=== PATIENT | female | born 1955 | race Caucasian/White ===

== ENCOUNTER → 2016-08-05 | Outpatient (CLI) | payer OTHER | LOC: FIMAGING 10:05 | DX: Z12.31 Encounter for screening mammogram for malignant neoplasm of breast (principal); Z80.3 Family history of malignant neoplasm of breast | CPT/HCPCS: G0202 ==

== ENCOUNTER → 2017-03-22 | Outpatient (CLI) | payer OTHER | LOC: FIMAGING 13:48 → EDSTATUS 13:49 | PROVIDERS: ATTEND Registered Nurse | DX: M19.041 Primary osteoarthritis, right hand (principal); M79.645 Pain in left finger(s) ==

== ENCOUNTER → 2017-08-14 | Outpatient (CLI) | payer OTHER | LOC: FIMAGING 14:04 | PROVIDERS: ATTEND Registered Nurse | DX: Z12.31 Encounter for screening mammogram for malignant neoplasm of breast (principal); Z80.3 Family history of malignant neoplasm of breast ==

== ENCOUNTER 2018-02-13 14:18 | Emergency (ER) | payer OTHER ==
--- NOTE | 2018-02-13 14:43 | EDPHY ---
H & P Stated Complaint: Sciatic pain Time Seen by Provider: 02/13/18 14:30 HPI/ROS: CHIEF COMPLAINT: Right lower extremity pain HISTORY OF PRESENT ILLNESS: 62-year-old female arrives via [employer] directly from [facility]. She landed a short period ago after returning from [facility]. This morning she woke with atraumatic right buttock pain with radicular pain into her right lower extremity. No footdrop her noted weakness. No midline back pain. No falls. No unusual exertional activity. No fever or chills. No history of IV drug use. No incontinence. No retention. No saddle anesthesia. No trauma or fall. No abdominal pain. No urinary abnormality. PRIMARY CARE PROVIDER: Saul Cabello REVIEW OF SYSTEMS: A ten point review of systems was performed and is negative with the exception of the items mentioned in the HPI PAST MEDICAL & SURGICAL HISTORY: No history of chronic back pain or radiculopathy SOCIAL HISTORY:Works as a entertainment dancer PHYSICAL EXAM (Prior to examination, patient consented to physical exam, hands were washed and my usual and customary physical exam procedures followed) 1) GENERAL: Well-developed, well-nourished, alert and oriented. Appears uncomfortable. When I enter the room the patient is standing, bent over the bed an awkward position which she describes as her most comfortable position 2) HEAD: Normocephalic, atraumatic 3) HEENT: Pupils equal, round, reactive to light bilaterally. Sclera anicteric. Nasopharynx, oropharynx, clear, no lesions. 4) NECK: Full range of motion, no meningeal signs. 5) LUNGS: Clear auscultation bilaterally, no wheezes, no rhonchi, no retractions. 6) HEART: Regular rate and rhythm, no murmur, no heave, no gallop. 7) ABDOMEN: No guarding, no rebound, no focal tenderness, negative McBurney's, negative Hurd's, negative Rovsing's, negative peritoneal sign, 8) MUSCULOSKELETAL: Moving all extremities, no focal areas of tenderness, no obvious trauma. No peripheral edema or discoloration. 9) BACK:. No CVA tenderness, no midline vertebral tenderness, no paraspinous pain to palpation, no fluctuance, no step-off, no obvious trauma, no visual or palpable abnormality. Right lower extremity hyporeflexia patella and Achilles reflexes. Reproducible pain in the right buttock with increase in radicular pain with movement/range of motion at the waist. 10) SKIN: No rash, no petechiae. DIFFERENTIAL DIAGNOSIS: In no particular order, including but not limited to, fracture, sprain/strain, cauda equina, spinal infectious etiology. MEDICAL DECISION MAKING 2:46 p.m.: Patient presents to the ER with new onset radiculopathy in absence of trauma. She is noted to be hyporeflexive on exam to the right lower extremity. I recommended MRI of the lumbar spine from the emergency department because of this. Case was discussed with secondary supervising physician Dr. Zayra Zavala in the ER who concurs with assessment. 4:28 p.m.: Consultation with Dr. Tre Espana, reviewed the imaging results and the patient's clinical presenting signs and symptoms. Patient feels comfortable being discharged home. He agrees with plan of discharge, Medrol Dosepak, analgesia, follow up in office. Patient has been given usual and customary low back pain precautions instructions. - Personal History Current Tetanus/Diphtheria Vaccine: Unsure - Medical/Surgical History Hx Asthma: No Hx Chronic Respiratory Disease: No Hx Diabetes: No Hx Cardiac Disease: No Hx Renal Disease: No Hx Cirrhosis: No Hx Alcoholism: No Other PMH: Denies - Social History Smoking Status: Never smoked Constitutional: Initial Vital Signs Temperature (C) 36.6 C 02/13/18 14:23 Heart Rate 61 02/13/18 14:23 Respiratory Rate 18 02/13/18 14:23 Blood Pressure 151/84 H 02/13/18 14:23 O2 Sat (%) 98 02/13/18 14:23 O2 Delivery Mode Room Air Allergies/Adverse Reactions: venom-wasp Allergy (Verified 02/13/18 14:25) Home Medications: Medication Instructions Recorded predniSONE [Prednisone] 20 mg PO DAILY #4 tablet 11/22/11 Hydrocodone/APAP 5/325 [Bridgeton 1 tab PO Q6 PRN #7 tab 02/13/18 5/325 (RX)] methylPREDNISolone [Medrol Dose 4 mg PO DAILY #1 ea 02/13/18 Wiliam] Departure - Departure Disposition: Home, Routine, Self-Care Clinical Impression: Lumbar radiculopathy, acute Condition: Good Instructions: Lumbar Radiculopathy (ED) Additional Instructions: Seek medical attention if you develop new or worsening pain, if you develop bladder or bowel dysfunction, numbness around your perineum, foot drop, or any other symptoms that concern you. Referrals: Db Espana MD [Medical Doctor] - 1-2 days without fail Prescriptions: Hydrocodone/APAP 5/325 [Bridgeton 5/325 (RX)] 1 tab PO Q6 PRN #7 tab PRN Reason: Pain, Severe methylPREDNISolone [Medrol Dose [place]am] 4 mg PO DAILY #1 ea
[2018-02-13 16:58] VITALS: BP 122/74
== END 2018-02-13 16:57 | disposition home or self-care (01) ==
DX: M54.16 Radiculopathy, lumbar region (principal)

== ENCOUNTER → 2018-08-29 | Outpatient (CLI) | payer OTHER | LOC: FIMAGING 09:58 | PROVIDERS: ATTEND Registered Nurse | DX: Z12.31 Encounter for screening mammogram for malignant neoplasm of breast (principal); Z13.820 Encounter for screening for osteoporosis; M85.89 Other specified disorders of bone density and structure, multiple sites ==